=== PATIENT | male | born 1955 | race Caucasian/White ===

== ENCOUNTER 2017-08-26 04:06 | Inpatient (IN) | payer MEDICARE, OTHER ==
[~2017-08-26] VITALS: Ht 175.3 cm; Wt 138.0 kg
[2017-08-26] VITALS (7 sets, daily range): BP systolic 149–181; BP diastolic 81–98; PULSE 89–113; RESP 16–19; TEMP 96.9–99.5; O2SAT 91–96
[2017-08-26] MEDS ORDERED: ALBUAER3 INH (04:24)
[2017-08-26] MEDS ORDERED: [UNRECOGNIZED DRUG - REMARK] INH (04:24)
[2017-08-26] MEDS ORDERED: PRED10 PO (04:24)
[2017-08-26] MEDS ORDERED: ALBUS PO (04:24)
[2017-08-26] MEDS ORDERED: FURO1TAB60 PO (04:24)
[2017-08-26] MEDS ORDERED: DOXA1TAB34 PO (04:24)
--- NOTE | 2017-08-26 05:40 | PD ---
HPI Chief Complaint: Complaint Time Seen by Provider: 04:33 Travel History International Travel<30 days: No Contact w/Intl Traveler<30days: No Traveled to known affect area: No History of Present Illness HPI 62-year-old male came to the emergency room with history of abdominal discomfort and urinary retention. Patient says he has been unable to empty his bladder completely since Friday which was 3 days ago. He also noticed blood clot in his urine. Since midnight he has not been able to urinate at all and has been very uncomfortable. He noticed that his abdomen is distended. Patient says this happened to him few years ago and he was seen in another state for that. Patient is not on any blood thinners. Pain is mostly in the suprapubic and abdominal area with no radiation. No fever or chills. PFSH Past Medical History Narrative Medical List of his past medical, surgical, social and family history is reviewed from the nursing note. Social History Tobacco Use: No Allergies-Medications (Allergen,Severity, Reaction): Coded Allergies: Penicillins (Verified Allergy, Unknown, 08/26/17) Comments List of his allergies reviewed from the nursing note. Reported Meds & Prescriptions Reported Meds & Active Scripts Active Reported Prednisone 10 Mg Tab 10 Mg PO DAILY Lasix (Furosemide) 40 Mg Tab 40 Mg PO DAILY Proair Hfa 8.5 GM Inh (Albuterol Sulfate) 90 Mcg/Act Aer 2 Puff INH Q4-6H PRN 108 mcg/actuation Albuterol Liq (Albuterol Sulfate) 2 Mg/5 Ml Syrp 0.4 Mg PO Q4H PRN Narrative Medication List of his home medications reviewed from the nursing note. Review of Systems Except as stated in HPI: all other systems reviewed are Neg Gastrointestinal: Positive: Abdominal Pain Genitourinary: Positive: Hematuria, Decreased Urinary Output Physical Exam Narrative GENERAL: [-] SKIN: Focused skin assessment warm/dry. HEAD: Atraumatic. Normocephalic. EYES: Pupils equal and round. No scleral icterus. No injection or drainage. ENT: No nasal bleeding or discharge. Mucous membranes pink and moist. NECK: Trachea midline. No JVD. CARDIOVASCULAR: Regular rate and rhythm. No murmur appreciated. RESPIRATORY: No accessory muscle use. Clear to auscultation. Breath sounds equal bilaterally. GASTROINTESTINAL: Abdomen is distended with a large suprapubic mass all the way up to the umbilicus. Possibly distended bladder. Hepatic and splenic margins not palpable. MUSCULOSKELETAL: No obvious deformities. No clubbing. No cyanosis. No edema. NEUROLOGICAL: Awake and alert. No obvious cranial nerve deficits. Motor grossly within normal limits. Normal speech. PSYCHIATRIC: Appropriate mood and affect; insight and judgment normal. Data Data Orders Orders Urinary Catheter Insert/Apply (08/26/17 04:33) Complete Blood Count With Diff (08/26/17 04:33) Basic Metabolic Panel (Bmp) (08/26/17 04:33) Urinalysis - C+S If Indicated (08/26/17 04:33) Prothrombin Time / Inr (Pt) (08/26/17 05:04) Type And Screen (08/26/17 05:04) Morphine Inj (Morphine Inj) (08/26/17 06:30) Bladder/Catheter Irrigation (08/26/17 06:37) Ct Abd/Pel W/O Iv Contrast (08/26/17 ) Admit Order (Ed Use Only) (08/26/17 06:45) Consult Urology (08/26/17 ) Labs Laboratory Tests Test 08/26/17 05:25 White Blood Count 8.7 TH/MM3 Red Blood Count 4.67 MIL/MM3 Hemoglobin 14.0 GM/DL Hematocrit 41.1 % Mean Corpuscular Volume 88.0 FL Mean Corpuscular Hemoglobin 30.0 PG Mean Corpuscular Hemoglobin Concent 34.1 % Red Cell Distribution Width 13.3 % Platelet Count 180 TH/MM3 Mean Platelet Volume 9.2 FL Neutrophils (%) (Auto) 74.8 % Lymphocytes (%) (Auto) 13.7 % Monocytes (%) (Auto) 9.2 % Eosinophils (%) (Auto) 1.7 % Basophils (%) (Auto) 0.6 % Neutrophils # (Auto) 6.5 TH/MM3 Lymphocytes # (Auto) 1.2 TH/MM3 Monocytes # (Auto) 0.8 TH/MM3 Eosinophils # (Auto) 0.1 TH/MM3 Basophils # (Auto) 0.0 TH/MM3 CBC Comment DIFF FINAL Differential Comment Prothrombin Time 10.8 SEC Prothromb Time International Ratio 1.0 RATIO Urine Color LIGHT-RED Urine Turbidity CLEAR Urine pH 5.0 Urine Specific [place] 1.013 Urine Protein TRACE mg/dL Urine Glucose (UA) NEG mg/dL Urine Ketones NEG mg/dL Urine Occult Blood LARGE Urine Nitrite NEG Urine Bilirubin NEG Urine Urobilinogen LESS THAN 2.0 MG/DL Urine Leukocyte Esterase SMALL Urine RBC /hpf Urine WBC 5 /hpf Urine Mucus FEW /lpf Microscopic Urinalysis Comment CATH-CULT NOT IND Blood Urea Nitrogen 18 MG/DL Creatinine 0.69 MG/DL Random Glucose 118 MG/DL Calcium Level 8.6 MG/DL Sodium Level 135 MEQ/L Potassium Level 4.0 MEQ/L Chloride Level 101 MEQ/L Carbon Dioxide Level 25.7 MEQ/L Anion Gap 8 MEQ/L Estimat Glomerular Filtration Rate 117 ML/MIN MDM Medical Decision Making Medical Screen Exam Complete: Yes Emergency Medical Condition: Yes Medical Record Reviewed: Yes Differential Diagnosis Urinary retention secondary to enlarged prostate, hematuria and blood clot causing urinary retention, bladder tumor causing urinary retention Narrative Course 7 AM blood test results of back and within acceptable limits. UA shows massive hematuria. Patient had a three-way Ortega catheter put in initially which was 20 Japanese and try to be irrigated but not much urinary output was there. Plus patient was getting more and more uncomfortable. This was taken out and a large bore 24 Japanese catheter was inserted and this led to better evacuation of the hematoma. Currently patient is on CBI. I discussed this case with the on- call urologist Dr. Collier and he wanted the patient to be admitted under medical service so that he can come later and consult on him. I discussed the case with the hospitalist was accepted the patient. Patient was medicated for pain. I have ordered a CT scan of the abdomen and pelvis and is pending to be done and read. Procedures EKG Prior to Arrival: No Physician Communication Physician Communication Dr. Collier Diagnosis Primary Impression: Urinary retention Additional Impression: Hematuria Qualified Codes: R31.9 - Hematuria, unspecified Admitting Information Admitting Physician Requests: Admit Scripts Hydrocodone-Acetaminophen ([place]) 5-325 mg Tab 1 TAB PO Q6H Y for PAIN, #20 TAB 0 Refills Prov: Nirav Falcon MD 08/30/17 Finasteride (Finasteride) 5 Mg Tab 5 MG PO BID for Prostate, #60 TAB Do not crush. Prov: Nirav Falcon MD 08/30/17 Tamsulosin (Flomax) 0.4 Mg Cap 0.4 MG PO BID for BPH for 90 Days, #180 CAP 3 Refills Prov: Leonard Collier MD 08/29/17 Spencer Vásquez MD Aug 26, 2017 05:40
[2017-08-26 06:10] LABS: AUTOMATED NEUTROPHIL # 6.5 TH/MM3 (1.8-7.7); BASOPHIL % 0.6 % (0.0-2.0); EOSINOPHIL # 0.1 TH/MM3 (0-0.4); EOSINOPHIL % 1.7 % (0.0-4.0); HEMATOCRIT 41.1 % (39.0-51.0); HEMO FLAGS DIFF FINAL; LYMPH % 13.7 % (9.0-44.0); LYMPHOCYTE # 1.2 TH/MM3 (1.0-4.8); MEAN CORPUSCULAR HGB CONC 34.1 % (32.0-36.0); MONO % 9.2 % (0.0-8.0); NEUT % 74.8 % (16.0-70.0); PLATELET COUNT 180 TH/MM3 (150-450); RED BLOOD COUNT 4.67 MIL/MM3 (4.50-5.90); RED CELL DISTRIBUTION WIDTH 13.3 % (11.6-17.2); WHITE BLOOD COUNT 8.7 TH/MM3 (4.0-11.0)
[2017-08-26 06:17] LABS: PROTHROMBIN TIME - PATIENT 10.8 SEC (9.8-11.6)
[2017-08-26 06:20] LABS: BLOOD, URINE LARGE (NEG); COMMENT (UR) CATH-CULT NOT IND; CULTURE IF INDICATED CATH CULTURE NOT IND; GLUCOSE,URINE NEG (NEG); KETONE, URINE NEG (NEG); MUCUS URINE FEW /lpf (OCC); NITRITE,URINE NEG (NEG)
[2017-08-26 06:22] LABS: URINE COLOR LIGHT-RED (YELLW/STRAW)
[2017-08-26 06:30] LABS: BICARBONATE 25.7 MEQ/L (21.0-32.0)
[2017-08-26] MEDS ORDERED: MORPHINE SULFATE 4 MG/ML INJ IV PUSH ONE (06:30)
--- NOTE | 2017-08-26 07:27 | RADRPT ---
EXAM DATE/TIME: 08/26/2017 06:49 [facility] COMPARISON: No previous studies available for comparison. INDICATIONS : Unable to urinate. ORAL CONTRAST: No oral contrast ingested. RADIATION DOSE: 26.37 CTDIvol (mGy) ; Patient body habitus MEDICAL HISTORY : None SURGICAL HISTORY : None. ENCOUNTER: Initial ACUITY: 1 day PAIN SCALE: 0/10 LOCATION: Bilateral abdomen TECHNIQUE: Volumetric scanning of the abdomen and pelvis was performed. Using automated exposure control and ad justment of the mA and/or kV according to patient size, radiation dose was kept as low as reasonably achievable to obtain optimal diagnostic quality images. DICOM format image data is available electro nically for review and comparison. FINDINGS: LOWER LUNGS: The visualized lower lungs are clear. LIVER: Homogeneous density without lesion. There is no dilation of the biliary tree. No calcified gallston es. There is moderate hepatic steatosis. SPLEEN: Normal size without lesion. PANCREAS: Within normal limits. KIDNEYS: Normal in size and shape. There is no mass, stone, or hydronephrosis. ADRENAL GLANDS: Within normal limits. VASCULAR: There is no aortic aneurysm. BOWEL/MESENTERY: The stomach, small bowel, and colon demonstrate no acute abnormality. There is no free intraperitone al air or fluid. ABDOMINAL WALL: Within normal limits. RETROPERITONEUM: There is no lymphadenopathy. BLADDER: There is a large high density mass in the bladder measuring up to 10.5 x 8.1 cm in diameter. There ar e bubbles of gas within this collection as well as an air-fluid level located in the anterior bladder . A Ortega catheter is noted more inferiorly. REPRODUCTIVE: Within normal limits. INGUINAL: There is no lymphadenopathy or hernia. MUSCULOSKELETAL: Within normal limits for patient age. CONCLUSION: 1. Large high density mass in the bladder characteristic of a hematoma. A Ortega catheter is present a s well as some gas. 2. The kidneys are unremarkable in appearance. 3. Moderate hepatic steatosis. Musa Talavera MD on August 26, 2017 at 7:11 Board Certified Radiologist. This report was verified electronically.
[2017-08-26] MEDS ORDERED: MAGNESIUM HYDROXIDE SUSP 30 ML CUP PO PRN (07:30)
[2017-08-26] MEDS ORDERED: NALOXONE HCL 0.4 MG/ML AMP IV PUSH PRN (07:30)
[2017-08-26] MEDS ORDERED: LACTULOSE SYRUP 20 GM/30 ML CUP PO PRN (07:30)
[2017-08-26] MEDS ORDERED: BISACODYL 10 MG SUPP RECTAL PRN (07:30)
[2017-08-26] MEDS ORDERED: SENNOSIDES 8.6 MG TAB PO PRN (07:30)
[2017-08-26] MEDS: SODIUM CHLORIDE 0.9% FLUSH 10 ML FLUSH IV FLUSH SCH ×2 (09:00→20:22)
--- NOTE | 2017-08-26 09:41 | HHI.HP ---
[facility]ician Unknown Admission Diagnosis urinary retention, bladder hematoma Diagnoses: Chief Complaint: urinary rentention, clots and abdominal pain Travel History International Travel<30 Days: No Contact w/Intl Traveler <30 Da: No Traveled to Known Affected Are: No History of Present Illness This is a 62-year-old male past history of COPD, asthma, history of BPH status post TURP who presented with urinary retention and clots. Patient stated that about a year ago he would have clots in his urine that was intermittent about a year. This episode started on Friday in which he had decreased urine output. He stated that on Friday he would dribble some urine then had clots. Friday night seemed to worsen and then he developed suprapubic abdominal pain that was constant. Denies any nausea or vomiting. Deny any diarrhea or constipation. 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 He last saw his primary's her physician a few years ago. He does currently see a superintendent laundry for his COPD. Family history of prostate cancer and leukemia. History of tobacco use about 2 packs per day for 50 years. He stated that he stopped tobacco use a few years ago. Patient asking for his nebulizer treatment. He stated that nebulizer only thing that works for COPD. He denied any shortness of breathing or worsening of cough. He stated that he does have a chronic cough. Denies any fevers or chills. All other review of systems reviewed and negative. Past Family Social History Past Medical History COPD Asthma BPH History of tobacco use. Past Surgical History History of multiple left knee surgeries and TURP Reported Medications Prednisone 10 Mg Tab 10 Mg PO DAILY Lasix (Furosemide) 40 Mg Tab 40 Mg PO DAILY Doxazosin (Doxazosin Mesylate) 4 Mg Tab 4 Mg PO DAILY [Dalaira] 1 Puff INH BID Proair Hfa 8.5 GM Inh (Albuterol Sulfate) 90 Mcg/Act Aer 2 Puff INH Q4-6H PRN 108 mcg/actuation Albuterol Liq (Albuterol Sulfate) 2 Mg/5 Ml Syrp 0.4 Mg PO Q4H PRN Allergies: Coded Allergies: Penicillins (Verified Allergy, Unknown, 08/26/17) Active Ordered Medications Current Medications Morphine Sulfate (Morphine Inj) 4 mg ONCE ONCE IV PUSH Last administered on t 06:55; Start 08/26/17 at 06:30; Stop 08/26/17 at 06:31; Status DC Sodium Chloride 1,000 ml @ 75 mls/hr [id number] IV ; Start 08/26/17 at 07:22 Sodium Chloride (NS Flush) 2 ml UNSCH PRN IV FLUSH FLUSH AFTER USING IV ACCESS ; Start 08/26/17 at 07:30 Sodium Chloride (NS Flush) 2 ml BID IV FLUSH ; Start 08/26/17 at 09:00 Acetaminophen (Tylenol) 650 mg Q4H PRN PO TEMP > 100.4; Start 08/26/17 at 07: 30 Ondansetron HCl (Zofran Inj) 4 mg Q6H PRN IVP NAUSEA OR VOMITING; Start at 07:30 Naloxone HCl (Narcan Inj) 0.4 mg UNSCH PRN IV PUSH SEE LABEL COMMENTS; Start 08/26/17 at 07:30 Senna/Docusate Sodium (Mag-Colace) 1 tab BID PO ; Start 08/26/17 at 09:00 Magnesium Hydroxide (Milk Of Magnesia Liq) 30 ml Q12H PRN PO Mild constipation ; Start 08/26/17 at 07:30 Sennosides (Senokot) 17.2 mg Q12H PRN PO Moderate constipation; Start at 07:30 Bisacodyl (Dulcolax Supp) 10 mg DAILY PRN RECTAL SEVERE CONSITIPATION; Start 08/26/17 at 07:30 Lactulose (Lactulose Liq) 30 ml DAILY PRN PO SEVERE CONSITIPATION; Start 08/26 at 07:30 Morphine Sulfate (Morphine Inj) 2 mg Q3H PRN IV PUSH pain 1-10; Start at 09:30; Status UNV Albuterol/ Ipratropium (Duoneb Neb) 1 ampule Q4HR NEB PRN NEB SHORTNESS OF BREATH; Start 08/26/17 at 09:30; Status UNV Family History Mother history of leukemia and at the age of 39. Father has history of prostate cancer. Social History Patient recently came down here for the winter. Usually lives in [place]. History of smoking 2 packs per day for 50 years. Stopped a few years ago. Rarely drinks alcohol. Denies any illicit drug use. Physical Exam Vital Signs Vital Signs Date Time Temp Pulse Resp B/P (MAP) Pulse Ox O2 Delivery O2 Flow Rate FiO2 08/26/17 07:23 101 16 181/90 (120) 95 Room Air Physical Exam GENERAL: This is a well-nourished, well-developed patient, in no apparent distress. SKIN: No rashes, ecchymoses or lesions. Cool and dry. HEAD: Atraumatic. Normocephalic. No temporal or scalp tenderness. EYES: Pupils equal round and reactive. Extraocular motions intact. No scleral icterus. No injection or drainage. ENT: Nose without bleeding, purulent drainage or septal hematoma. Throat without erythema, tonsillar hypertrophy or exudate. Uvula midline. Airway patent. NECK: Trachea midline. No JVD or lymphadenopathy. Supple, nontender, no meningeal signs. CARDIOVASCULAR: Regular rate and rhythm without murmurs, gallops, or rubs. RESPIRATORY: Clear to auscultation. Breath sounds equal bilaterally. No wheezes , rales, or rhonchi. GASTROINTESTINAL: Abdomen soft, nondistended. No hepato-splenomegaly, or palpable masses. No guarding. Positive suprapubic pain to palpitation. Negative for any peritoneal signs. Negative for any CVA tenderness. MUSCULOSKELETAL: Extremities without clubbing, cyanosis, or edema. No joint tenderness, effusion, or edema noted. No calf tenderness. Negative Homans sign bilaterally. NEUROLOGICAL: Awake and alert. Cranial nerves II through XII intact. Motor and sensory grossly within normal limits. Five out of 5 muscle strength in all muscle groups. Normal speech. Laboratory Laboratory Tests Test 08/26/17 05:25 White Blood Count 8.7 Red Blood Count 4.67 Hemoglobin 14.0 Hematocrit 41.1 Mean Corpuscular Volume 88.0 Mean Corpuscular Hemoglobin 30.0 Mean Corpuscular Hemoglobin Concent 34.1 Red Cell Distribution Width 13.3 Platelet Count 180 Mean Platelet Volume 9.2 Neutrophils (%) (Auto) 74.8 Lymphocytes (%) (Auto) 13.7 Monocytes (%) (Auto) 9.2 Eosinophils (%) (Auto) 1.7 Basophils (%) (Auto) 0.6 Neutrophils # (Auto) 6.5 Lymphocytes # (Auto) 1.2 Monocytes # (Auto) 0.8 Eosinophils # (Auto) 0.1 Basophils # (Auto) 0.0 CBC Comment DIFF FINAL Differential Comment Prothrombin Time 10.8 Prothromb Time International Ratio 1.0 Urine Color LIGHT-RED Urine Turbidity CLEAR Urine pH 5.0 Urine Specific [place] 1.013 Urine Protein TRACE Urine Glucose (UA) NEG Urine Ketones NEG Urine Occult Blood LARGE Urine Nitrite NEG Urine Bilirubin NEG Urine Urobilinogen LESS THAN 2.0 Urine Leukocyte Esterase SMALL Urine RBC Urine WBC 5 Urine Mucus FEW Microscopic Urinalysis Comment CATH-CULT NOT IND Blood Urea Nitrogen 18 Creatinine 0.69 Random Glucose 118 Calcium Level 8.6 Sodium Level 135 Potassium Level 4.0 Chloride Level 101 Carbon Dioxide Level 25.7 Anion Gap 8 Estimat Glomerular Filtration Rate 117 Result Diagram: 08/26/17 0525 08/26/17 0525 Imaging Last Impressions Abdomen/Pelvis CT 08/26/17 0000 Signed Impressions: Service Date/Time: Saturday, August 26, 2017 06:49 - CONCLUSION: 1. Large high density mass in the bladder characteristic of a hematoma. A Ortega catheter is present as well as some gas. 2. The kidneys are unremarkable in appearance. 3. Moderate hepatic steatosis. MD Ashley Saelhi VTE Risk Assessment Caprini VTE Risk Assessment: Mod/High Risk (score >= 2) Caprini Risk Assessment Model Point Value = 1 Point Value = 2 Point Value = 3 Point Value = 5 Age 41-60 Minor surgery BMI > 25 kg/m2 Swollen legs Varicose veins or History of unexplained or recurrent spontaneous Oral contraceptives or hormone replacement Sepsis (< 1 month) Serious lung disease, including pneumonia (< 1 month) Abnormal pulmonary function Acute myocardial infarction Congestive heart failure (< 1 month) History of inflammatory bowel disease Medical patient at bed rest Age 61-74 Arthroscopic surgery Major open surgery (> 45 min) Laparoscopic surgery (> 45 min) Malignancy Confined to bed (> 72 hours) Immobilizing plaster cast Central venous access Age >= 75 History of VTE Family history of VTE Factor V Leiden Prothrombin [id number] Lupus anticoagulant Anticardiolipin antibodies Elevated serum homocysteine Heparin-induced thrombocytopenia Other congenital or acquired thrombophilia Stroke (< 1 month) Elective arthroplasty Hip, pelvis, or leg fracture Acute spinal cord injury (< 1 month) Prophylaxis Regimen Total Risk Factor Score Risk Level Prophylaxis Regimen 0-1 Low Early ambulation 2 Moderate Order ONE of the following: *Sequential Compression Device (SCD) *Heparin 5000 units SQ BID 3-4 Higher Order ONE of the following medications: *Heparin 5000 units SQ TID *Enoxaparin/Lovenox 40 mg SQ daily (WT < 150 kg, CrCl > 30 mL/min) *Enoxaparin/Lovenox 30 mg SQ daily (WT < 150 kg, CrCl > 10-29 mL/min) *Enoxaparin/Lovenox 30 mg SQ BID (WT < 150 kg, CrCl > 30 mL/min) AND/OR *Sequential Compression Device (SCD) 5 or more Highest Order ONE of the following medications: *Heparin 5000 units SQ TID (Preferred with Epidurals) *Enoxaparin/Lovenox 40 mg SQ daily (WT < 150 kg, CrCl > 30 mL/min) *Enoxaparin/Lovenox 30 mg SQ daily (WT < 150 kg, CrCl > 10-29 mL/min) *Enoxaparin/Lovenox 30 mg SQ BID (WT < 150 kg, CrCl > 30 mL/min) AND *Sequential Compression Device (SCD) Assessment and Plan Assessment and Plan This is a male past medical history of COPD/asthma who presented with Urinary retention/gross hematuria -This has been occurring over one year. CT scan of the abdomen/pelvis shows high density mass in the bladder which may be secondary to hematoma and hepatic steatosis. -Ortega was placed in emergency department placed on CBI. Continue her current management. -Urologist already consulted. Pending recommendations. Continue to monitor H& H and kidney function. -Continue with supportive care including IV fluids and pain control. Hepatic steatosis -Most likely secondary to morbid obesity. Education given on weight loss. Morbid obesity BMI 42.3. -Education. COPD/asthma/history of BPH status post TURP -Resume home medication. -Unsure why patient is on Lasix and he is not the greatest historian. Will hold Lasix pending workup. DVT prophylaxis -SCDs Discussed Condition With patient and his nurse Physician Certification 2 Midnight Certification Type: Admission for Inpatient Services Order for Inpatient Services The services are ordered in accordance with Medicare regulations or non- Medicare payer requirements, as applicable. In the case of services not specified as inpatient-only, they are appropriately provided as inpatient services in accordance with the 2-midnight benchmark. Estimated LOS (days): 2 2 days is the estimated time the patient will need to remain in the hospital, assuming treatment plan goals are met and no additional complications. Post-Hospital Plan: Tamara Rose MD Aug 26, 2017 09:41
[2017-08-26] MEDS: RESP: ALBUTEROL 2.5 MG/IPRATROPIUM 0.5 MG NEB (PRN) NEB ×4 (10:11→23:32)
[2017-08-26] MEDS: DOCUSATE SODIUM 50 MG/SENNA 8.6 MG TAB PO SCH ×2 (10:25→20:22)
[2017-08-26] MEDS: SODIUM CHLOR 0.45% 1000 ML INJ 1,000 ML IV SCH ×2 (10:25→20:21)
[2017-08-26] MEDS ORDERED: ONDANSETRON HCL 4 MG/2 ML VIAL IV PUSH ONE (10:37)
[2017-08-26] MEDS ORDERED: GLYCOPYRROLATE 1 MG/5 ML SYRINGE IV PUSH ONE (10:37)
[2017-08-26] MEDS ORDERED: SUCCINYLCHOLINE CHLORIDE 100 MG/5 ML SYRINGE IV PUSH ONE (10:37)
[2017-08-26] MEDS ORDERED: LIDOCAINE HCL 1% PF 5 ML AMPULE OTHER ONE (10:37)
[2017-08-26] MEDS ORDERED: DEXAMETHASONE SOD PHOS 4 MG/ML VIAL IV ONE (10:37)
[2017-08-26] MEDS ORDERED: PROPOFOL 200 MG/20 ML AMP IV ONE (10:37)
[2017-08-26] MEDS ORDERED: NEOSTIGMINE 3 MG/3 ML SYR IV ONE (10:37)
[2017-08-26] MEDS: MORPHINE SULFATE 2 MG/ML INJ IV PUSH PRN ×5 (10:38→20:21)
--- NOTE | 2017-08-26 14:56 | MB ---
cc: LEONARD ZAMUDIO MD DATE OF CONSULTATION: 08/26/2017 REASON FOR CONSULTATION 1. Clot retention. 2. History of BPH status post TURP. HISTORY OF PRESENT ILLNESS The patient is a 62-year-old male with a history of BPH status post TURP several years, who presented with inability to urinate and passing small red blood clots since yesterday evening. The patient states that he has had clots intermittently in his urine for the past year, however, the most recent episode started this past Friday night when he started to have the urge to urinate and would urinate in small amounts. On Friday he would dribble some and then would pass large clots. Over the next 24 hours it continued to worsen where he had significant lower abdominal pain and nausea, and was unable to empty his bladder. He came to the ER for further evaluation. In the ER he had a three-way Ortega catheter placed to start CBI but has been intermittently draining and clotting off. CT of the abdomen and pelvis with and without contrast was done which showed a large possible blood clot in his bladder. The patient stated he had TURP several years ago by a urologist up in [place]. Following the TURP he had been voiding without issues. He does have a family history of prostate cancer and has smoked a pack per day for the last 50 years. Denies history of kidney stones or urinary tract infection. Denies fevers or chills at this time. Denies taking any blood thinners. PAST MEDICAL HISTORY 1. COPD. 2. Asthma. 3. BPH. PAST SURGICAL HISTORY 1. TURP. 2. Left knee surgery. MEDICATIONS Reported medications include: 1. Prednisone. 2. Lasix. 3. Doxazosin. 4. ProAir. 5. Albuterol. ALLERGIES PENICILLIN. FAMILY HISTORY Father had prostate cancer. Denies urolithiasis. 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 He had smoked two packs per day for the last 50 years and stopped a few years ago. Occasional alcohol. Denies any illicit drug use. PHYSICAL EXAMINATION VITAL SIGNS: Temperature 97.4, pulse 103, respiratory rate 19, BP 149/85, satting 96% on room air. GENERAL: He is alert and oriented x3 in mild distress, pleasant and cooperative and appears his stated age. HEAD: Normocephalic, atraumatic. EYES: No scleral icterus. Extraocular muscles intact. LUNGS: Clear to auscultation bilaterally. No wheezes, rales or rhonchi. HEART: Regular rhythm. No murmurs, gallops or rubs. SKIN: No ulcers or rashes, pink and moist. ABDOMEN: Soft, nontender, nondistended. Positive bowel sounds. GENITOURINARY: He has a Ortega catheter in place with minimal drainage of [place]-colored blood. Penis is circumcised. Testes are descended bilaterally, normal size and consistency without mass. EXTREMITIES: Nontender. No clubbing, cyanosis or edema. PSYCH: Normal affect. NEUROLOGIC: Cranial nerves II through XII intact. Strength 5/5 in all four extremities. LABORATORY Hemoglobin 14.0, hematocrit 40.1, white count 8.7, platelet count 180. Sodium 135, potassium 4.0, chloride 101, bicarb 25.7, BUN 18, creatinine 0.69. Urine showed large blood, small leukocyte esterase. IMAGING STUDIES CT of the abdomen and pelvis with and without contrast: Images reviewed. Agree with radiologist's report. The patient has a large hematoma in his bladder, likely a blood clot. No evidence of hydronephrosis or stones. ASSESSMENT The patient is a 62-year-old male with a history of BPH status post TURP, who presents with clot retention. PLAN Keep the patient n.p.o. Will take the patient to the OR later today for a cystoscopy and clot evacuation. I discussed the risks, benefits and alternatives of the operation with him and he agreed to proceed. Leonard Zamudio MD EMGaby/BT /1:29 PM /2:38 PM
[2017-08-26] MEDS: SODIUM CHLORIDE 0.9% FLUSH 10 ML FLUSH IV FLUSH PRN ×2 (15:03→17:31)
--- NOTE | 2017-08-26 21:58 | EKG ---
Date Performed: 08/26/2017 Time Performed: 14:25:20 PTAGE: 62 years EKG: SINUS TACHYCARDIA WITH SHORT CO INTERVAL ABNORMAL RHYTHM ECG NO PREVIOUS TRACING DOCTOR: Sascha Limon Interpretating Date/Time 08/26/2017 21:58:07
[2017-08-26] MEDS ORDERED: CIPROFLOXACIN 400 MG PREMIX 200 ML ONE (23:49)
[2017-08-27] VITALS (7 sets, daily range): BP systolic 117–145; BP diastolic 56–73; PULSE 99–106; RESP 17–20; TEMP 96.1–98; O2SAT 90–99
[2017-08-27] MEDS ORDERED: BELLADONNA ALKALOIDS/OPIUM 60 MG SUPP RECTAL PRN (00:15)
[2017-08-27] MEDS ORDERED: DO NOT ADM ANY ANTICOAGULANT DRUGS PRN (01:15)
[2017-08-27] MEDS: RESP: ALBUTEROL 2.5 MG/IPRATROPIUM 0.5 MG NEB (PRN) NEB ×4 (01:54→21:19)
[2017-08-27] MEDS: SODIUM CHLORIDE 0.9% FLUSH 10 ML FLUSH IV FLUSH SCH ×2 (08:23→20:22)
[2017-08-27] MEDS: DOCUSATE SODIUM 50 MG/SENNA 8.6 MG TAB PO SCH ×2 (08:23→20:22)
[2017-08-27] MEDS: TAMSULOSIN HCL 0.4 MG CAP PO SCH (08:23)
[2017-08-27 08:27] LABS: MEAN CELL VOLUME 88.5 FL (80.0-100.0); MEAN CORPUSCULAR HEMOGLOBIN 30.3 PG (27.0-34.0); MEAN CORPUSCULAR HGB CONC 34.3 % (32.0-36.0); PLATELET COUNT 191 TH/MM3 (150-450); RED BLOOD COUNT 4.29 MIL/MM3 (4.50-5.90); RED CELL DISTRIBUTION WIDTH 13.4 % (11.6-17.2); REVIEW FLAG FINAL; WHITE BLOOD COUNT 11.7 TH/MM3 (4.0-11.0)
[2017-08-27 09:22] LABS: BICARBONATE 25.9 MEQ/L (21.0-32.0); POTASSIUM 4.6 MEQ/L (3.5-5.1)
[2017-08-27] MEDS ORDERED: PNEUMOCOCCAL POLYVALENT INJ 25 MCG/0.5 ML SYR IM ONE (10:00)
[2017-08-27] MEDS ORDERED: INFLUENZA VIRUS VACCINE (QUADRIVALENT) 0.5 ML SYR IM ONE (10:00)
[2017-08-27] MEDS: ACETAMINOPHEN 325 MG TAB PO PRN ×2 (11:25→20:22)
[2017-08-27] MEDS: SODIUM CHLOR 0.45% 1000 ML INJ 1,000 ML IV SCH ×2 (11:25→20:23)
--- NOTE | 2017-08-27 12:30 | HHI.PR ---
Subjective Patient symptoms today feel much better. Denies abdominal pain. catheter draining well. Objective Vital Signs Vital Signs Date Time Temp Pulse Resp B/P (MAP) Pulse Ox O2 Delivery O2 Flow Rate FiO2 08/27/17 12:00 97.9 105 17 117/56 (76) 90 08/27/17 08:00 97.4 104 19 136/63 (87) 90 08/27/17 02:40 97.9 99 20 136/73 (94) 99 08/27/17 02:15 100 17 151/64 (93) 93 Nasal Cannula 4 08/27/17 02:00 98.4 100 18 155/67 (96) 92 Nasal Cannula 4 08/27/17 01:55 90 Nasal Cannula 3.00 08/27/17 01:45 106 19 151/67 (95) 93 Nasal Cannula 3 08/27/17 01:30 97 21 149/67 (94) 93 Nasal Cannula 3 08/27/17 01:15 109 22 130/60 (83) 95 Bi-Pap 08/27/17 01:06 101 24 93 Bi-Pap 35 08/27/17 01:00 101 23 129/60 (83) 93 Simple Mask 15 08/27/17 00:54 98.9 107 24 147/65 (92) 90 Simple Mask 15 08/26/17 23:48 99.5 113 18 177/81 (113) 91 08/26/17 23:35 93 08/26/17 20:12 99.2 108 17 170/82 (111) 92 08/26/17 17:36 16 08/26/17 16:00 96.9 109 18 166/98 (120) 93 Intake & Output 08/27/17 08/27/17 07:00 19:00 Intake Total 1140 ml Output Total 3650 ml 550 ml Balance -2510 ml -550 ml Intake Oral 240 ml IV Total 400 ml Other 500 ml Output Urine Total 3600 ml 550 ml Estimated Blood Loss 50 ml Result Diagram: 08/27/17 0751 08/27/17 075 Objective Remarks NAD. A/O x 3 abd soft urine clear, minimal CBI Procedures cystoscopy, clot evacuation 08/26/2017 Medications and IVs Current Medications Medications (Trade) Dose Ordered Sig/Demetra Route Start Time Stop Time Status Last Admin Sodium Chloride 1,000 ml @ 75 mls/hr [id number] IV 08/26/17 07:22 08/27/17 11:25 (NS Flush) 2 ml UNSCH PRN IV FLUSH 08/26/17 07:30 08/26/17 17:31 (NS Flush) 2 ml BID IV FLUSH 08/26/17 09:00 08/26/17 20:22 (Tylenol) 650 mg Q4H PRN PO 08/26/17 07:30 08/27/17 11:25 (Zofran Inj) 4 mg Q6H PRN IVP 08/26/17 07:30 (Narcan Inj) 0.4 mg UNSCH PRN IV PUSH 08/26/17 07:30 (Mag-Colace) 1 tab BID PO 08/26/17 09:00 08/27/17 08:23 (Milk Of Magnesia Liq) 30 ml Q12H PRN PO 08/26/17 07:30 (Senokot) 17.2 mg Q12H PRN PO 08/26/17 07:30 (Dulcolax Supp) 10 mg DAILY PRN RECTAL 08/26/17 07:30 (Lactulose Liq) 30 ml DAILY PRN PO 08/26/17 07:30 (Morphine Inj) 2 mg Q3H PRN IV PUSH 08/26/17 09:30 08/26/17 20:21 (Duoneb Neb) 1 ampule Q4HR NEB PRN NEB 08/26/17 09:30 08/27/17 08:35 (B & O Supp) 60 mg Q6H PRN RECTAL 08/27/17 00:15 (Flomax) 0.4 mg DAILY PO 08/27/17 09:00 08/27/17 08:23 Miscellaneous Information ALL NURSING DEPARTME... UNSCH PRN .XX 08/27/17 01:15 08/28/17 01:14 (Tylenol) 500 mg Q4H PRN PO 08/27/17 10:45 Assessment and Plan Assessment and Plan POD #1 cystoscopy, clot evacuation -Wean CBI -Hgb stable. -void trial in A.M. -Restart finasteride 5 mg daily. -Bleeding likely from enlarged prostate Leonard Collier MD Aug 27, 2017 12:30
[2017-08-27] MEDS: FINASTERIDE 5 MG TAB PO SCH (13:50)
[2017-08-27] MEDS: ACETAMINOPHEN 500 MG CPLT PO PRN (15:43)
--- NOTE | 2017-08-27 17:30 | HHI.PR ---
Subjective Remarks Patient is improving. No pain reported. Status post cystoscopy etiology is suspected to be from enlarged prostate. Objective Vital Signs Date Time Temp Pulse Resp B/P (MAP) Pulse Ox O2 Delivery O2 Flow Rate FiO2 08/27/17 16:00 96.1 106 18 126/56 (79) 90 08/27/17 12:00 97.9 105 17 117/56 (76) 90 08/27/17 08:00 97.4 104 19 136/63 (87) 90 08/27/17 02:40 97.9 99 20 136/73 (94) 99 08/27/17 02:15 100 17 151/64 (93) 93 Nasal Cannula 4 08/27/17 02:00 98.4 100 18 155/67 (96) 92 Nasal Cannula 4 08/27/17 01:55 90 Nasal Cannula 3.00 08/27/17 01:45 106 19 151/67 (95) 93 Nasal Cannula 3 08/27/17 01:30 97 21 149/67 (94) 93 Nasal Cannula 3 08/27/17 01:15 109 22 130/60 (83) 95 Bi-Pap 08/27/17 01:06 101 24 93 Bi-Pap 35 08/27/17 01:00 101 23 129/60 (83) 93 Simple Mask 15 08/27/17 00:54 98.9 107 24 147/65 (92) 90 Simple Mask 15 08/26/17 23:48 99.5 113 18 177/81 (113) 91 08/26/17 23:35 93 08/26/17 20:12 99.2 108 17 170/82 (111) 92 08/26/17 17:36 16 I/O 08/26/17 08/26/17 08/26/17 08/27/17 08/27/17 08/27/17 07:00 15:00 23:00 07:00 15:00 23:00 Intake Total 1750 ml 0 ml 1140 ml 654 ml Output Total 1750 ml 50 ml 3650 ml 550 ml Balance 0 ml -50 ml -2510 ml -550 ml 654 ml Intake Oral 0 ml 240 ml IV Total 400 ml 654 ml Other 1750 ml 500 ml Output Urine Total 1750 ml 50 ml 3600 ml 550 ml Estimated Blood Loss 50 ml # Bowel Movements 0 Result Diagram: 08/27/17 0751 08/27/17 075 Objective Remarks GENERAL: NAD, A&Ox3 HEAD: Normocephalic. NECK: Supple, trachea midline. No lymphadenopathy. EYES: No scleral icterus. No injection or drainage. CARDIOVASCULAR: Regular rate and rhythm without murmurs, gallops, or rubs. RESPIRATORY: Breath sounds equal bilaterally. No accessory muscle use. GASTROINTESTINAL: Abdomen soft, non-tender, nondistended. MUSCULOSKELETAL: No cyanosis, or edema. SKIN: Warm and dry. NEURO: No focal neurological deficitis. A/P Problem List: (1) Hematuria ICD Code: R31.9 - Hematuria, unspecified Status: Acute (2) Urinary retention ICD Code: R33.9 - Retention of urine, unspecified Status: Acute Assessment and Plan Assessment and Plan 8-year-old male admitted secondary to hematuria with related urinary obstruction. Urinary retention gross hematuria history of BPH status post TURP (between 1 and 2 years ago) CBI, now weaning Per urology will do a void trial tomorrow Urology following Hepatic steatosis Morbid obesity BMI 42.3. Follows in outpatient COPD asthma No exacerbations Follow clinically DVT prophylaxis SCDs Problem Qualifiers (1) Hematuria: Qualified Codes: R31.9 - Hematuria, unspecified Nirav Falcon MD Aug 27, 2017 17:30
[2017-08-27] MEDS ORDERED: ACETAMIN 325 MG/BUTALBITAL 50 MG/CAFFEINE 40 MG TAB PO ONE (18:00)
[2017-08-27] MEDS: ONDANSETRON HCL 4 MG/2 ML VIAL IVP PRN (20:23)
[2017-08-28] VITALS (8 sets, daily range): BP systolic 123–156; BP diastolic 56–94; PULSE 79–94; RESP 20; TEMP 97.1–98.2; O2SAT 90–96
[2017-08-28] MEDS: ACETAMINOPHEN 500 MG CPLT PO PRN (00:45)
[2017-08-28] MEDS: RESP: ALBUTEROL 2.5 MG/IPRATROPIUM 0.5 MG NEB (PRN) NEB ×3 (03:24→19:54)
[2017-08-28 06:01] LABS: AUTOMATED NEUTROPHIL # 8.4 TH/MM3 (1.8-7.7); BASOPHIL % 0.2 % (0.0-2.0); EOSINOPHIL % 0.2 % (0.0-4.0); HEMATOCRIT 36.9 % (39.0-51.0); HEMO FLAGS DIFF FINAL; LYMPH % 9.1 % (9.0-44.0); LYMPHOCYTE # 0.9 TH/MM3 (1.0-4.8); MEAN CELL VOLUME 89.4 FL (80.0-100.0); MEAN CORPUSCULAR HEMOGLOBIN 30.2 PG (27.0-34.0); MEAN CORPUSCULAR HGB CONC 33.8 % (32.0-36.0); MONO % 10.1 % (0.0-8.0); NEUT % 80.4 % (16.0-70.0); PLATELET COUNT 191 TH/MM3 (150-450); RED BLOOD COUNT 4.13 MIL/MM3 (4.50-5.90); RED CELL DISTRIBUTION WIDTH 13.4 % (11.6-17.2); WHITE BLOOD COUNT 10.4 TH/MM3 (4.0-11.0)
[2017-08-28 06:23] LABS: ALT (GPT) 24 U/L (12-78); ANION GAP 4 MEQ/L (5-15); AST (GOT) 22 U/L (15-37); BICARBONATE 32.8 MEQ/L (21.0-32.0); BLOOD UREA NITROGEN 18 MG/DL (7-18); CHLORIDE 102 MEQ/L (98-107); GLOMERULAR FILTRATION RATE 105 ML/MIN (>89); SODIUM (NA) 139 MEQ/L (136-145)
[2017-08-28 06:25] LABS: ALKALINE PHOSPHATASE 62 U/L (45-117); TOTAL BILIRUBIN ADULT 0.2 MG/DL (0.2-1.0)
[2017-08-28] MEDS: SODIUM CHLORIDE 0.9% FLUSH 10 ML FLUSH IV FLUSH SCH ×2 (07:53→20:59)
[2017-08-28] MEDS: ONDANSETRON HCL 4 MG/2 ML VIAL IVP PRN (07:53)
[2017-08-28] MEDS: TAMSULOSIN HCL 0.4 MG CAP PO SCH (09:48)
[2017-08-28] MEDS: FINASTERIDE 5 MG TAB PO SCH (09:48)
[2017-08-28] MEDS: DOCUSATE SODIUM 50 MG/SENNA 8.6 MG TAB PO SCH ×2 (09:48→21:00)
--- NOTE | 2017-08-28 14:21 | HHI.PR ---
Subjective Remarks Failed void trial today. Pain, distention, and volume greater than 800ml is present this afternoon. No urination. Catheter reinserted. Objective Vital Signs Date Time Temp Pulse Resp B/P (MAP) Pulse Ox O2 Delivery O2 Flow Rate FiO2 08/28/17 12:00 97.2 79 20 123/57 (79) 96 08/28/17 08:26 Nasal Cannula 08/28/17 08:00 98.2 80 20 147/70 (95) 92 08/28/17 03:30 92 08/28/17 00:39 97.1 94 20 129/60 (83) 90 08/27/17 21:19 90 21 08/27/17 20:00 98.0 104 20 145/60 (88) 90 08/27/17 16:00 96.1 106 18 126/56 (79) 90 I/O 08/27/17 08/27/17 08/27/17 08/28/17 08/28/17 08/28/17 07:00 15:00 23:00 07:00 15:00 23:00 Intake Total 1140 ml 3054 ml Output Total 3650 ml 550 ml 1400 ml 4550 ml Balance -2510 ml -550 ml 1654 ml -4550 ml Intake Oral 240 ml 2400 ml IV Total 400 ml 654 ml Other 500 ml Output Urine Total 3600 ml 550 ml 1400 ml 4550 ml Estimated Blood Loss 50 ml Bladder Scan Volume Amount 893 ml 893 ml # Bowel Movements 0 Result Diagram: 08/28/1733 08/28/17532 Objective Remarks GENERAL: NAD, A&Ox3 HEAD: Normocephalic. NECK: Supple, trachea midline. No lymphadenopathy. EYES: No scleral icterus. No injection or drainage. CARDIOVASCULAR: Regular rate and rhythm without murmurs, gallops, or rubs. RESPIRATORY: Breath sounds equal bilaterally. No accessory muscle use. GASTROINTESTINAL: Abdomen soft, non-tender, nondistended. MUSCULOSKELETAL: No cyanosis, or edema. SKIN: Warm and dry. NEURO: No focal neurological deficitis. A/P Problem List: (1) Hematuria ICD Code: R31.9 - Hematuria, unspecified Status: Acute (2) Urinary retention ICD Code: R33.9 - Retention of urine, unspecified Status: Acute Assessment and Plan Assessment and Plan 8-year-old male admitted secondary to hematuria with related urinary obstruction. Void trail failed today. Ortega catheter replacement ordered. Plan to try again tomorrow. Urinary retention gross hematuria history of BPH status post TURP (between 1 and 2 years ago) CBI discontinued Repeat void trial tomorrow Urology following Hepatic steatosis Morbid obesity BMI 42.3. Follows in outpatient COPD asthma No exacerbations Follow clinically DVT prophylaxis SCDs Problem Qualifiers (1) Hematuria: Qualified Codes: R31.9 - Hematuria, unspecified Nirav Falcon MD Aug 28, 2017 14:21
[2017-08-28] MEDS ORDERED: HYDROmorphone HCL PF 1 MG/ML VIAL IV PUSH ONE (14:30)
[2017-08-28] MEDS: SODIUM CHLORIDE 0.9% FLUSH 10 ML FLUSH IV FLUSH PRN (15:11)
[2017-08-28] MEDS: SODIUM CHLOR 0.45% 1000 ML INJ 1,000 ML IV SCH (20:59)
[2017-08-29] VITALS (7 sets, daily range): BP systolic 130–136; BP diastolic 58–67; PULSE 71–84; RESP 18–22; TEMP 97.2–98.3; O2SAT 91–95
[2017-08-29] MEDS: MORPHINE SULFATE 2 MG/ML INJ IV PUSH PRN ×2 (05:25→16:25)
[2017-08-29] MEDS: SODIUM CHLOR 0.45% 1000 ML INJ 1,000 ML IV SCH ×2 (05:26→21:31)
[2017-08-29] MEDS: RESP: ALBUTEROL 2.5 MG/IPRATROPIUM 0.5 MG NEB (PRN) NEB ×4 (05:55→20:18)
[2017-08-29] MEDS: FINASTERIDE 5 MG TAB PO SCH (07:46)
[2017-08-29] MEDS: DOCUSATE SODIUM 50 MG/SENNA 8.6 MG TAB PO SCH ×2 (07:46→21:00)
[2017-08-29] MEDS: ACETAMINOPHEN 325 MG TAB PO PRN (07:46)
[2017-08-29] MEDS: SODIUM CHLORIDE 0.9% FLUSH 10 ML FLUSH IV FLUSH SCH ×2 (07:46→21:14)
[2017-08-29] MEDS: TAMSULOSIN HCL 0.4 MG CAP PO SCH (07:46)
[2017-08-29] MEDS ORDERED: DULE100A INH (11:11)
--- NOTE | 2017-08-29 13:15 | HHI.PR ---
Subjective Patient symptoms today failed void trial yesterday. Trying again today. Rose removed about 1 hour ago. Passing flatus. Denies fevers. Objective Vital Signs Vital Signs Date Time Temp Pulse Resp B/P (MAP) Pulse Ox O2 Delivery O2 Flow Rate FiO2 08/29/17 12:00 97.8 83 20 135/58 (83) 94 08/29/17 08:22 91 Nasal Cannula 1.00 08/29/17 07:40 97.2 83 20 136/59 (84) 92 08/29/17 05:58 95 Nasal Cannula 2.00 08/28/17 23:48 97.2 90 20 126/56 (79) 90 08/28/17 20:56 97.7 89 20 127/83 (98) 90 08/28/17 19:54 91 21 08/28/17 15:35 97.3 86 20 156/94 (114) 92 Intake & Output 08/29/17 08/29/17 07:00 19:00 Intake Total 2829 ml Output Total 3100 ml Balance -271 ml IV Total 2829 ml Output Urine Total 3100 ml Result Diagram: 08/28/1753208/28/17532 Objective Remarks NAD. A/O x 3 abd soft Procedures cystoscopy, clot evacuation 08/26/2017 Medications and IVs Current Medications Medications (Trade) Dose Ordered Sig/Demetra Route Start Time Stop Time Status Last Admin Sodium Chloride 1,000 ml @ 75 mls/hr [id number] IV 08/26/17 07:22 08/29/17 05:26 (NS Flush) 2 ml UNSCH PRN IV FLUSH 08/26/17 07:30 08/28/17 15:11 (NS Flush) 2 ml BID IV FLUSH 08/26/17 09:00 08/28/17 20:59 (Tylenol) 650 mg Q4H PRN PO 08/26/17 07:30 08/29/17 07:46 (Zofran Inj) 4 mg Q6H PRN IVP 08/26/17 07:30 08/28/17 07:53 (Narcan Inj) 0.4 mg UNSCH PRN IV PUSH 08/26/17 07:30 (Mag-Colace) 1 tab BID PO 08/26/17 09:00 08/29/17 07:46 (Milk Of Magnesia Liq) 30 ml Q12H PRN PO 08/26/17 07:30 (Senokot) 17.2 mg Q12H PRN PO 08/26/17 07:30 (Dulcolax Supp) 10 mg DAILY PRN RECTAL 08/26/17 07:30 (Lactulose Liq) 30 ml DAILY PRN PO 08/26/17 07:30 (Morphine Inj) 2 mg Q3H PRN IV PUSH 08/26/17 09:30 08/29/17 05:25 (Duoneb Neb) 1 ampule Q4HR NEB PRN NEB 08/26/17 09:30 08/29/17 10:51 (B & O Supp) 60 mg Q6H PRN RECTAL 08/27/17 00:15 (Flomax) 0.4 mg DAILY PO 08/27/17 09:00 08/29/17 07:46 (Tylenol) 500 mg Q4H PRN PO 08/27/17 10:45 08/28/17 00:45 (Proscar) 5 mg DAILY PO 08/27/17 12:30 08/29/17 07:46 Assessment and Plan Assessment and Plan POD #3 cystoscopy, clot evacuation -void trail again today. If he cannot void, replace rose and send home. Can f/ u next week in office. -Increase Flomax to BID. Leonard Collier MD Aug 29, 2017 13:15
[2017-08-29] MEDS ORDERED: TAMS5CAP PO (13:16)
[2017-08-29] MEDS: SODIUM CHLORIDE 0.9% FLUSH 10 ML FLUSH IV FLUSH PRN ×2 (16:27→17:23)
[2017-08-29] MEDS ORDERED: HYDROmorphone HCL PF 1 MG/ML VIAL IV PUSH ONE (16:45)
--- NOTE | 2017-08-29 18:28 | HHI.PR ---
Subjective Remarks Patient has failed to void trial for the second anaerobe. Replacement of catheter occurred. There was difficulty with replacement of catheter the second time. Coude catheter worked. Objective Vital Signs Date Time Temp Pulse Resp B/P (MAP) Pulse Ox O2 Delivery O2 Flow Rate FiO2 08/29/17 16:53 91 Nasal Cannula 2.00 08/29/17 16:00 97.7 84 18 131/67 (88) 92 08/29/17 12:00 97.8 83 20 135/58 (83) 94 08/29/17 08:22 91 Nasal Cannula 1.00 08/29/17 07:40 97.2 83 20 136/59 (84) 92 08/29/17 05:58 95 Nasal Cannula 2.00 08/28/17 23:48 97.2 90 20 126/56 (79) 90 08/28/17 20:56 97.7 89 20 127/83 (98) 90 08/28/17 19:54 91 21 I/O 08/28/17 08/28/17 08/28/17 08/29/17 08/29/17 08/29/17 07:00 15:00 23:00 07:00 15:00 23:00 Intake Total 1620 ml 1829 ml 720 ml Output Total 4550 ml 1050 ml 3100 ml Balance -4550 ml 570 ml -1271 ml 720 ml Intake Oral 620 ml 720 ml IV Total 1000 ml 1829 ml Output Urine Total 4550 ml 1050 ml 3100 ml Bladder Scan Volume Amount 893 ml 893 ml # Voids 0 # Bowel Movements 0 1 Result Diagram: 08/28/17 0533 08/28/17 0533 Objective Remarks GENERAL: NAD, A&Ox3 HEAD: Normocephalic. NECK: Supple, trachea midline. No lymphadenopathy. EYES: No scleral icterus. No injection or drainage. CARDIOVASCULAR: Regular rate and rhythm without murmurs, gallops, or rubs. RESPIRATORY: Breath sounds equal bilaterally. No accessory muscle use. GASTROINTESTINAL: Abdomen soft, non-tender, nondistended. MUSCULOSKELETAL: No cyanosis, or edema. SKIN: Warm and dry. NEURO: No focal neurological deficitis. A/P Problem List: (1) Hematuria ICD Code: R31.9 - Hematuria, unspecified Status: Acute (2) Urinary retention ICD Code: R33.9 - Retention of urine, unspecified Status: Acute Assessment and Plan Assessment and Plan 62-year-old male admitted secondary to hematuria with related urinary obstruction. Void trail failed again today. Ortega catheter replaced. No further void trials. Patient will follow-up with urology. Monitor catheter and treat pain overnight and possible discharge tomorrow morning. Urinary retention gross hematuria history of BPH status post TURP (between 1 and 2 years ago) CBI discontinued Repeat void trial tomorrow Urology following Hepatic steatosis Morbid obesity BMI 42.3. Follows in outpatient COPD asthma No exacerbations Follow clinically DVT prophylaxis SCDs Problem Qualifiers (1) Hematuria: Qualified Codes: R31.9 - Hematuria, unspecified Nirav Falcon MD Aug 29, 2017 18:28
[2017-08-29] MEDS: ACETAMINOPHEN 500 MG CPLT PO PRN (21:24)
[2017-08-30] VITALS: BP 137/73; PULSE 88; RESP 22; TEMP 97.6; O2SAT 94
[2017-08-30] MEDS: RESP: ALBUTEROL 2.5 MG/IPRATROPIUM 0.5 MG NEB (PRN) NEB ×2 (01:00→08:29)
[2017-08-30 01:03] VITALS: O2SAT 96
[2017-08-30] MEDS: SODIUM CHLOR 0.45% 1000 ML INJ 1,000 ML IV SCH (03:46)
[2017-08-30 04:00] VITALS: BP 139/69; PULSE 82; RESP 20; TEMP 97.6; O2SAT 94
[2017-08-30 08:00] VITALS: BP 158/72; PULSE 75; RESP 19; TEMP 97.7; O2SAT 93
[2017-08-30 08:31] VITALS: O2SAT 93
[2017-08-30] MEDS ORDERED: FINA5TAB2 PO (08:46)
[2017-08-30] MEDS: SODIUM CHLORIDE 0.9% FLUSH 10 ML FLUSH IV FLUSH SCH (09:00)
[2017-08-30] MEDS: DOCUSATE SODIUM 50 MG/SENNA 8.6 MG TAB PO SCH (09:00)
[2017-08-30] MEDS: FINASTERIDE 5 MG TAB PO SCH (09:54)
[2017-08-30] MEDS: TAMSULOSIN HCL 0.4 MG CAP PO SCH (09:54)
[2017-08-30] MEDS ORDERED: NORC5TAB PO (11:06)
--- NOTE | 2017-08-30 11:18 | HHI.DS ---
Discharge Summary Admission Date Aug 26, 2017 at 06:47 Discharge Date: Aug 30, 2017 Admitting Diagnosis urinary retention, bladder hematoma (1) Urinary retention ICD Code: R33.9 - Retention of urine, unspecified Diagnosis: Principal Status: Acute (2) Hematuria ICD Code: R31.9 - Hematuria, unspecified Diagnosis: Principal Status: Acute Procedures Cystoscopy Brief History - From Admission This is a 62-year-old male past history of COPD, asthma, history of BPH status post TURP who presented with urinary retention and clots. Patient stated that about a year ago he would have clots in his urine that was intermittent about a year. This episode started on Friday in which he had decreased urine output. He stated that on Friday he would dribble some urine then had clots. Friday night seemed to worsen and then he developed suprapubic abdominal pain that was constant. Denies any nausea or vomiting. Deny any diarrhea or constipation. 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 He last saw his primary's her physician a few years ago. He does currently see a psychologist educational for his COPD. Family history of prostate cancer and leukemia. History of tobacco use about 2 packs per day for 50 years. He stated that he stopped tobacco use a few years ago. Patient asking for his nebulizer treatment. He stated that nebulizer only thing that works for COPD. He denied any shortness of breathing or worsening of cough. He stated that he does have a chronic cough. Denies any fevers or chills. All other review of systems reviewed and negative. CBC/BMP: 08/28/17 0533 08/28/17 0533 Significant Findings Laboratory Tests Test 08/28/17 05:33 Red Blood Count 4.13 MIL/MM3 (4.50-5.90) Hemoglobin 12.5 GM/DL (13.0-17.0) Hematocrit 36.9 % (39.0-51.0) Neutrophils (%) (Auto) 80.4 % (16.0-70.0) Monocytes (%) (Auto) 10.1 % (0.0-8.0) Neutrophils # (Auto) 8.4 TH/MM3 (1.8-7.7) Lymphocytes # (Auto) 0.9 TH/MM3 (1.0-4.8) Monocytes # (Auto) 1.1 TH/MM3 (0-0.9) Random Glucose 157 MG/DL (74-106) Total Protein 6.0 GM/DL (6.4-8.2) Albumin 2.7 GM/DL (3.4-5.0) Calcium Level 8.1 MG/DL (8.5-10.1) Carbon Dioxide Level 32.8 MEQ/L (21.0-32.0) Anion Gap 4 MEQ/L (5-15) Hospital Course Mr. Gerardo is a 62-year-old male. He was admitted secondary to hematuria with urinary retention. CBI was performed and improvement was witnessed. Cystoscopy was performed and did not show any specific cause, etiology is most likely related to patient's benign prostatic hypertrophy. Void trial occurred the following day after CBI have been discontinued. He failed his first void trial. Yesterday avoid trial was repeated and he also failed this. Catheter has been replaced. Some hematuria remains but no clot burden in his seen. Medically stable for discharge today and he will follow-up with urology this week. Pt Condition on Discharge: Stable Discharge Disposition: Discharge Home Discharge Time: <= 30 minutes Discharge Instructions DIET: Follow Instructions for: As Tolerated, No Restrictions Activities you can perform: Regular-No Restrictions Follow up Referrals: PCP Follow-up - 2 Weeks Urology - 1 Week with Leonard Collier MD New Medications: Hydrocodone-Acetaminophen ([place]) 5-325 mg Tab 1 TAB PO Q6H PRN for PAIN, #20 TAB 0 Refills Finasteride (Finasteride) 5 Mg Tab 5 MG PO BID for Prostate, #60 TAB Do not crush. Tamsulosin (Flomax) 0.4 Mg Cap 0.4 MG PO BID for BPH for 90 Days, #180 CAP 3 Refills Continued Medications: Albuterol 8.5 GM Inh (Proair Hfa 8.5 GM Inh) 90 Mcg/Act Aer 2 PUFF INH Q4-6H PRN for SHORTNESS OF BREATH, #1 INHALER 0 Refills 108 mcg/actuation Albuterol Liq (Albuterol Liq) 2 Mg/5 Ml Syrp 0.4 MG PO Q4H PRN for SOB/WHEEZING, #30 ML 0 Refills Furosemide (Lasix) 40 Mg Tab 40 MG PO DAILY, #30 TAB 0 Refills Mometasone-Formoterol 120 Act Inh (Dulera 120 Act Inh) Unknown Strength Inh 1 PUFF INH BID for Asthma Management, #1 INHALER 0 Refills Prednisone (Prednisone) 10 Mg Tab 10 MG PO DAILY, TAB 0 Refills Discontinued Medications: Doxazosin (Doxazosin) 4 Mg Tab 4 MG PO DAILY, #30 TAB 0 Refills Nirav Falcon MD Aug 30, 2017 11:18
--- NOTE | 2017-09-15 13:25 | MP ---
cc: ABBE ZAMUDIO MD DATE OF SURGERY: 09/15/2017 1957 PREOPERATIVE DIAGNOSIS 1. Gross hematuria. 2. Clot retention. 3. History of BPH status post TURP. POSTOPERATIVE DIAGNOSIS 1. Gross hematuria. 2. Clot retention. 3. History of BPH status post TURP. PROCEDURE PERFORMED 1. Cystourethroscopy. 2. Clot evacuation. SURGEON Abbe Zamudio MD ANESTHESIA General. COMPLICATIONS None. PREOP ANTIBIOTICS Cipro 400 mg IV. DRAINS 24-Jamaican three-way Ortega catheter to gravity drainage. SPECIMENS None. BLOOD LOSS Minimal. DISPOSITION Stable to recovery. INDICATIONS The patient is a 62-year-old male with history of BPH status post TURP several years ago, presented to the ER several days ago with inability to empty his bladder and gross hematuria. The patient had a CT abdomen and pelvis without contrast done which showed a large blood clot versus mass in his bladder. A three way Ortega catheter was inserted but had difficulty with irrigation throughout the day as the catheter kept clotting off. Due to these findings he was then set up for cystoscopy, clot evacuation, possible TURBT. After risks, benefits and alternatives were explained to the patient, the patient wished to proceed and informed consent was obtained. PROCEDURE IN DETAIL The patient was properly identified, brought back to the cystoscopy suite. He was laid supine on the cystoscopy table. Appropriate time-out was performed. Under the direction of anesthesiology the patient was intubated induced under general anesthetic. Preop antibiotics in the form of Cipro 400 mg IV were given within one hour of starting the procedure. The patient was then placed in dorsolithotomy position, prepped and draped in normal sterile surgical fashion. Rigid cystoscope was carefully passed into his bladder per urethra without any difficulty and we found a large organized clot was formed. Then switched out to the 26-Jamaican monopolar resectoscope. Using [place] evacuator I was then able to remove the entirety of all the clot from his bladder. At this point I was able to carefully look around his bladder, I did not see any bladder mass at all, however, he did have a large residual prostatic growth including a large median lobe which was likely the source of his bleeding. The rest of his bladder appeared to be normal other than some moderate trabeculations. At this time I then removed the scope and placed a 24-Jamaican three-way catheter and started continuous bladder irrigation. This concluded the procedure. The patient was extubated and sent to recovery in stable condition to be transferred back to the floor for routine postop care. Will go ahead and start the patient on finasteride 5 mg p.o. daily along with his tamsulosin. However, he may likely need a repeat TURP in the future due to the amount of prostate tissue that was seen and the recurrent bleeding. MD ERIKA Velez/CHEL /12:37 PM /1:01 PM
== END 2017-08-30 11:15 | disposition home or self-care (01) | DRG 726 ==
LOC: NEPC 04:06 → NEDA 06:47 → N07B 11:59
PROVIDERS: ADMIT Hospitalist; ATTEND Hospitalist
PROC: 0T9B70Z Drainage of Bladder with Drainage Device, Via Natural or Artificial Opening (ICD-10-PCS; 2017-08-26)
PROC: 0TCB8ZZ Extirpation of Matter from Bladder, Via Natural or Artificial Opening Endoscopic (ICD-10-PCS; principal; 2017-08-26 23:54)
DX: N40.1 Benign prostatic hyperplasia with lower urinary tract symptoms (principal); Z68.41 Body mass index [BMI] 40.0-44.9, adult; K76.0 Fatty (change of) liver, not elsewhere classified; N42.1 Congestion and hemorrhage of prostate; E66.01 Morbid (severe) obesity due to excess calories; J44.9 Chronic obstructive pulmonary disease, unspecified; R33.8 Other retention of urine; R31.0 Gross hematuria; Z87.891 Personal history of nicotine dependence; Z88.0 Allergy status to penicillin; Z23 Encounter for immunization
CPT/HCPCS: 51700; 74176; 76937; 80048; 80053; 81001; 85018; 85025; 85027; 85610; 86850; 86900; 86901; 90471; 90686; 93005; 94640; 94664; G0008; J0330; J0744; J1100; J1170; J2270; J2405; J2710; J3010; Q2038

== ENCOUNTER 2017-09-06 20:55 | Emergency (ER) | payer OTHER ==
[~2017-09-06 20:55] MED LIST: ALBUAER3 INH; ALBUS PO; DULE100A INH; FINA5TAB2 PO; FURO1TAB60 PO; NORC5TAB PO; PRED10 PO; TAMS5CAP PO
[2017-09-06 21:01] VITALS: BP 160/91; PULSE 99; RESP 24; TEMP 98.6; O2SAT 94
[2017-09-06 22:13] VITALS: BP 159/79; PULSE 99; RESP 22; O2SAT 94
--- NOTE | 2017-09-06 23:00 | PD ---
HPI Chief Complaint: Complaint Time Seen by Provider: 22:38 Travel History International Travel<30 days: No Contact w/Intl Traveler<30days: No Traveled to known affect area: No History of Present Illness HPI pt has a benitez that has been in place for 10 days was in [place] with a blood clot in [facility] Collier retrograde cystoscopy to remove according to patient and since then has had 5 attempts to remove benitez without success pt went to [facility] yesterday to try benitez removal and at home no urine then returned to [facility] for benitez re-insertion now 5 hrs no outpt into benitez and comes in pain distended to suprapubic area he reports then when standing up to gety out of wheel chair in the ER benitez put out clot and dark purple urine 500 cc , now when I examined has little pain PFSH Past Medical History Asthma: Yes Anxiety: No Depression: No Cardiovascular Problems: No COPD: Yes Diminished Hearing: Yes (DEAF R EAR) Endocrine: No Genitourinary: Yes (BLOOD CLOT IN BLADDER) Immune Disorder: No Musculoskeletal: Yes Neurologic: Yes (HX SPINAL MENINGITIS X3) Psychiatric: No Reproductive: Yes Respiratory: Yes (COPD) Tetanus Vaccination: Unknown Past Surgical History Other Surgery: Yes Social History Alcohol Use: No Tobacco Use: No Substance Use: No Allergies-Medications (Allergen,Severity, Reaction): Coded Allergies: Penicillins (Verified Allergy, Unknown, 09/07/17) Reported Meds & Prescriptions Reported Meds & Active Scripts Active [place] (Hydrocodone-Acetaminophen) 5-325 mg Tab 1 Tab PO Q6H PRN Finasteride 5 Mg Tab 5 Mg PO BID Do not crush. Flomax (Tamsulosin HCl) 0.4 Mg Cap 0.4 Mg PO BID 90 Days Reported Dulera 120 Act Inh (Mometasone-Formoterol 120 Act Inh) Unknown Strength Inh 1 Puff INH BID Prednisone 10 Mg Tab 10 Mg PO DAILY Lasix (Furosemide) 40 Mg Tab 40 Mg PO DAILY Proair Hfa 8.5 GM Inh (Albuterol Sulfate) 90 Mcg/Act Aer 2 Puff INH Q4-6H PRN 108 mcg/actuation Albuterol Liq (Albuterol Sulfate) 2 Mg/5 Ml Syrp 0.4 Mg PO Q4H PRN Review of Systems Except as stated in HPI: all other systems reviewed are Neg Genitourinary: Positive: Dysuria, Hematuria Physical Exam Narrative GENERAL: abdo pain suprpubic leaning over holding abdo as I enter the room SKIN: Warm and dry. HEAD: Atraumatic. Normocephalic. EYES: Pupils equal and round. No scleral icterus. No injection or drainage. ENT: No nasal bleeding or discharge. Mucous membranes pink and moist. NECK: Trachea midline. No JVD. CARDIOVASCULAR: Regular rate and rhythm. RESPIRATORY: No accessory muscle use. Clear to auscultation. Breath sounds equal bilaterally. benitez inplace with dark urine purple in bag 500 cc .. no blood overflowing the benitez from meatus GASTROINTESTINAL: Abdomen , mild tender, slight distended. Hepatic and splenic margins not palpable. MUSCULOSKELETAL: Extremities without clubbing, cyanosis, or edema. No obvious deformities. NEUROLOGICAL: Awake and alert. No obvious cranial nerve deficits. Motor grossly within normal limits. Five out of 5 muscle strength in the arms and legs. Normal speech. PSYCHIATRIC: Appropriate mood and affect; insight and judgment normal. Data Data Last Documented VS Vital Signs Date Time Temp Pulse Resp B/P (MAP) Pulse Ox O2 Delivery O2 Flow Rate FiO2 09/07/17 02:20 92 18 154/80 (104) 99 09/07/17 01:57 21 09/06/17 22:13 Room Air 09/06/17 21:01 98.6 Orders Orders Bladder/Catheter Irrigation (09/06/17 23:14) Albuterol-Ipratropium Neb (Duoneb Neb) (09/07/17 02:00) Ed Discharge Order (09/07/17 01:58) [facility] Medical Decision Making Medical Screen Exam Complete: Yes Emergency Medical Condition: Yes Differential Diagnosis hematuria , CLOTS IN BLADDER BENITEZ OBStruction Narrative Course clots seen and irrigation until cleared Bladder scan shows 150cc aftermuch irrigation and clearing of urine to clear , spoke to Dr Medrano for Dr Collier and agree with benitez in place follow up as out pt Physician Communication Physician Communication Dr Medrano for Dr Collier Diagnosis Primary Impression: Hematuria Qualified Codes: R31.0 - Gross hematuria Referrals: Leonard Collier MD Patient Instructions: General Instructions, Hematuria (ED) Disposition: 01 DISCHARGE HOME Condition: Good Norris Armenta MD Sep 06, 2017 23:00
[2017-09-07 01:57] VITALS: O2SAT 94
[2017-09-07] MEDS ORDERED: RESP: ALBUTEROL 2.5 MG/IPRATROPIUM 0.5 MG NEB (SCH) NEB ONE (02:00)
[2017-09-07 02:20] VITALS: BP 154/80
== END 2017-09-07 02:41 | disposition home or self-care (01) ==
LOC: NEPC 20:55
DX: R31.0 Gross hematuria (principal); J45.909 Unspecified asthma, uncomplicated; Z96.0 Presence of urogenital implants; J44.9 Chronic obstructive pulmonary disease, unspecified
CPT/HCPCS: 51700; 94664

== ENCOUNTER 2017-09-07 13:44 | Emergency (ER) | payer OTHER ==
[~2017-09-07] VITALS: Ht 175.3 cm; Wt 125.0 kg
[2017-09-07 13:46] VITALS: BP 155/80; PULSE 112; RESP 20; TEMP 98.8; O2SAT 96
--- NOTE | 2017-09-07 14:48 | PD ---
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 madden, has been on Ortega catheter which has intermittently been getting clogged, seen yesterday as well for blood clot in the Ortega catheter, is back because he states that he is having a lot of lower abdominal discomfort, and states that his urine has not been flowing in the catheter since this morning. He is worried that he has a blocked catheter again. He denies any vomiting, fevers, or other symptoms. Modifying Factors: None Associated Signs & Symptoms: Blocked urinary catheter Risk Factors: Blood clot in the bladder PFSH Past Medical History Asthma: Yes Anxiety: No Depression: No Cardiovascular Problems: No COPD: Yes Diminished Hearing: Yes (DEAF R EAR) Endocrine: No Genitourinary: Yes (BLOOD CLOT IN BLADDER) Immune Disorder: No Musculoskeletal: Yes Neurologic: Yes (HX SPINAL MENINGITIS X3) Psychiatric: No Reproductive: Yes Respiratory: Yes Past Surgical History Other Surgery: Yes Social History Alcohol Use: No Tobacco Use: No Substance Use: No Allergies-Medications (Allergen,Severity, Reaction): Coded Allergies: Penicillins (Verified Allergy, Unknown, 09/07/17) Reported Meds & Prescriptions Reported Meds & Active Scripts Active Braman (Hydrocodone-Acetaminophen) 5-325 mg Tab 1 Tab PO Q6H PRN Finasteride 5 Mg Tab 5 Mg PO BID Do not crush. Flomax (Tamsulosin HCl) 0.4 Mg Cap 0.4 Mg PO BID 90 Days Reported Dulera 120 Act Inh (Mometasone-Formoterol 120 Act Inh) Unknown Strength Inh 1 Puff INH BID Prednisone 10 Mg Tab 10 Mg PO DAILY Lasix (Furosemide) 40 Mg Tab 40 Mg PO DAILY Proair Hfa 8.5 GM Inh (Albuterol Sulfate) 90 Mcg/Act Aer 2 Puff INH Q4-6H PRN 108 mcg/actuation Albuterol Liq (Albuterol Sulfate) 2 Mg/5 Ml Syrp 0.4 Mg PO Q4H PRN Review of Systems Except as stated in HPI: all other systems reviewed are Neg Physical Exam Narrative GENERAL: Well-developed elderly white male patient currently in moderate distress. Awake and oriented 3. SKIN: Focused skin assessment warm/dry. HEAD: Atraumatic. Normocephalic. EYES: Pupils equal and round. No scleral icterus. No injection or drainage. ENT: No nasal bleeding or discharge. Mucous membranes pink and moist. NECK: Trachea midline. No JVD. CARDIOVASCULAR: Regular rate and rhythm. No murmur appreciated. RESPIRATORY: No accessory muscle use. Clear to auscultation. Breath sounds equal bilaterally. GASTROINTESTINAL: Abdomen with tenderness to the lower abdomen, moderately distended. Hepatic and splenic margins not palpable. MUSCULOSKELETAL: No obvious deformities. No clubbing. No cyanosis. No edema. NEUROLOGICAL: Awake and alert. No obvious cranial nerve deficits. Motor grossly within normal limits. Normal speech. PSYCHIATRIC: Appropriate mood and affect; insight and judgment normal. Data Data Last Documented VS Vital Signs Date Time Temp Pulse Resp B/P (MAP) Pulse Ox O2 Delivery O2 Flow Rate FiO2 09/07/17 13:46 98.8 112 20 155/80 (105) 96 Room Air Orders Orders Bladder/Catheter Irrigation (09/07/17 14:31) MDM Medical Decision Making Medical Screen Exam Complete: Yes Emergency Medical Condition: Yes Medical Record Reviewed: Yes Differential Diagnosis Ortega catheter issues/blood clot in the bladder Narrative Course Ortega catheter was flushed and after 20 cc of flushed, his Ortega catheter started flowing with aravind colored urine again. He drained almost a liter of fluids. At this point, case is discussed with Dr. Chung who is covering for Dr. madden, and he states that the patient can be instructed how to flush his Ortega catheter in case this happens again, and should follow-up with Dr. madden on Friday. He should return for any worsening in pain, or new symptoms as needed. The plan was discussed with patient and he states understanding. Diagnosis Primary Impression: Ortega catheter problem Disposition: DISCHARGE HOME Condition: Stable Sin Cheney MD Sep 07, 2017 14:48
[2017-09-07] MEDS ORDERED: PHENAZOPYRIDINE HCL 100 MG TAB PO PRN (17:15)
== END 2017-09-07 19:00 | disposition home or self-care (01) ==
LOC: NEPC 13:44
DX: T83.81XA Embolism due to genitourinary prosthetic devices, implants and grafts, initial encounter (principal); J45.909 Unspecified asthma, uncomplicated; J44.9 Chronic obstructive pulmonary disease, unspecified; H91.91 Unspecified hearing loss, right ear; Z86.61 Personal history of infections of the central nervous system; Z88.0 Allergy status to penicillin; Z79.899 Other long term (current) drug therapy
CPT/HCPCS: 51700